=== PATIENT | female | born 1960 ===

== ENCOUNTER 2017-09-14 21:53 | Emergency (ER) | payer BC ==
[2017-09-14 22:02] VITALS: BP 137/60; PULSE 104; TEMP 98.7; BMI 18.8
--- NOTE | 2017-09-14 22:11 | PDOC ---
History of Present Illness - General Chief Complaint: Pain, Acute Stated Complaint: RIGHT EYE PAIN - History of Present Illness Initial Comments: 09/15/17 06:44 c/o gradual onset r eye pain x hours much worse with exposure to light no headache vision ok has not had this prior no f/c no trauma fhx: non-contrib ros: reviewed and otherwise negative o/e uncomfortable EOMI PERRL marked photophobia including contralateral phootphobia in R eye [facility]--at baseline no conj injection reports substantial relief after tropicamide the remainder of facial exam nl neuro exam: no sensory deficits, nl motor exam, nl speech, nl gait neck -nt rrr cta a/p iritis continue mydriacil nsaids prn ophtho fu in AM Past History - Past Medical History Allergies/Adverse Reactions: Allergies Allergy/AdvReac Type Severity Reaction Status Date / Time No Known Allergies Allergy Verified 09/14/17 21:55 Home Medications: Ambulatory Orders Aspirin [ASA -] 325 mg PO DAILY 09/14/17 Atorvastatin Ca [Lipitor] 40 mg PO HS 09/14/17 Cardiac Disorders: Yes (CAROTID BLOCKAGE) COPD: No Other medical history: TIA - Suicide/Smoking/Psychosocial Hx Smoking History: Current every day smoker Have you smoked in the past 12 months: Yes Number of Cigarettes Smoked Daily: 30 Information on smoking cessation initiated: Yes 'Breaking Loose' booklet given: 09/14/17 Hx Alcohol Use: No Drug/Substance Use Hx: No Substance Use Type: None *Physical Exam - Vital Signs Last Vital Signs Temp Pulse Resp BP Pulse Ox 98.7 F 104 H 18 137/60 98 09/14/17 21:58 09/14/17 21:58 09/14/17 21:58 09/14/17 21:58 09/14/17 21:58 *DC/Admit/Observation/Transfer Diagnosis at time of Disposition: Iritis - Discharge Dispostion Disposition: HOME Condition at time of disposition: Stable Admit: No - Referrals Referrals: Harry Dickerson MD [Staff Physician] - Call tomorrow - Patient Instructions - Post Discharge Activity
[2017-09-14] MEDS ORDERED: TROPICAMIDE 1% OPHTH SOLN 15 ML BOTTLE OD SCH (22:15)
== END 2017-09-15 00:41 | disposition home or self-care (01) ==
LOC: FER 21:53
DX: H20.9 Unspecified iridocyclitis (principal); Z86.73 Personal history of transient ischemic attack (TIA), and cerebral infarction without residual deficits
CPT/HCPCS: 99281-25